=== PATIENT | male | born 1945 | race Caucasian/White ===

== ENCOUNTER 2023-10-01 16:25 | Emergency (ER) | payer MEDICARE, SELFPAY ==
[2023-10-01 16:28] VITALS: BP 148/69; PULSE 93; TEMP 36.4; O2SAT 98; BMI 30.7
--- NOTE | 2023-10-01 16:49 | XR_ITS ---
The [address] [address] Patient Name: FIORELLA VILLAOTRO MRN: [id number] date: 1945 Sex: M Assigned Patient Location: ER Current Patient Location: ED.MAIN Accession/Order Number: [id number] Exam Date: 10/01/2023 17:05 Report Date: 10/01/2023 17:24 At the request of: SUHAIL MCGARRY Procedure: XR chest 2V EXAM: XR chest 2V HISTORY: cough and chest pain for one week. COMPARISON: 04/09/2016 TECHNIQUE: Upright PA and lateral chest x-ray FINDINGS: The heart is not enlarged and the vasculature is not distended. No acute infiltrate, effusion or pneumothorax is identified. The osseous structures are grossly intact. There has been interval placement of a left-sided transvenous pacemaker without a complicating process. XR/XR chest 2V IMPRESSION: No acute infiltrate or evidence of cardiac decompensation. Except for placement of the left-sided pacemaker, the overall appearance of the chest is essentially unchanged. Electronically authenticated by: LEIA RAMOS Date: 10/01/2023 17:24
--- NOTE | 2023-10-01 16:49 | ECG_ITS ---
The [facility] Test Date: 2023-10-01 Pat Name: Holden De La Fuente Department: Room: - Gender: Male [employer]: : 1945 Requested By: TAMARA GOLDMAN Order Number: [id number] Reading MD: LISHA COOLEY Measurements Intervals [place] Rate: 89 P: 66 [place]: 198 QRS: -62 QRSD: 128 T: 69 QT: 388 QTc: 434 Interpretive Statements 1100 Sinus rhythm 2450 Right bundle branch block 2630 Left anterior fascicular block 3114 Cannot rule out anterior myocardial infarction, age undetermined 9150 abnormal ECG Electronically Signed On 10-03-2023 7:36:30 EDT by LISHA COOLEY
--- NOTE | 2023-10-01 16:55 | ED.GENADUL1 ---
HPI HPI - General Adult General Chief complaint: Chest Pain Stated complaint: CHEST PAIN Time Seen by Provider: 10/01/23 16:49 History of Present Illness HPI narrative: Patient is a 78-year-old male who is presenting to the Emergency Room with chief complaint Of left lower anterior, lateral, posterior chest wall pain for the past week. Patient has not been coughing. No traveling. No heavy lifting, twisting, turning, no fall. No traumatic episode of the cause chest wall pain. Patient has no abdominal pain, nausea or vomiting. Patient is sitting these having intermittently pain from his left lower back along his waistline. Patient's having dark or foul-smelling urine, concerned about possible urinary tract infection. Patient has been taking [id number] medication with some relief. and daughter at bedside. Patient does have a pacemaker. Patient is having hard time getting comfortable, sleeping, so came into the Emergency Room for evaluation after his symptoms of been there for one week. All systems are negative except as noted/marked. All systems reviewed and otherwise negative. Nurses note and vital signs reviewed and patient is not hypoxic. General: The patient appears well and in no apparent distress. Patient is resting comfortably on cart. Patient is not toxic, lethargic, or listless Skin: Warm, dry, no pallor noted. There is no rash noted. No petechiae, purpura. Head: Normocephalic, atraumatic Eye: Normal conjunctiva, no drainage, EOMI. PERRL Ears, Nose, Mouth, and Throat: oral mucosa is moist. Nares patent. Mouth without vesicles. Cardiovascular: Regular Rate and Rhythm, no murmur, gallop, rub. Patient has no rash. Patient has moderate to severe tenderness to palpation to the left anterior, lateral, posterior chest wall along rib 10. Patient has no crepitus. No other anterior, lateral, posterior chest wall tenderness palpation. Respiratory: Patient is in no distress, no accessory muscle use, lungs are clear to auscultation, no wheezing, rales or rhonchi Back: non-tender, no CVA tenderness bilaterally to percussion. No CT LS midline pain GI: Obese, no tenderness to palpation, no masses appreciated. No rebound, guarding, or rigidity noted. No distention Musculoskeletal: Patient has full range of motion of all of the extremities, no motor, sensory, or focal neurological deficits Neurological: A&O x4, normal speech Psychiatric: Cooperative Related Data Previous Rx's ?Medication ?Instructions ?Recorded hydrocodone 5 mg-acetaminophen 325 1 tab PO Q4H PRN pain #10 tabs 10/01/23 mg tablet methocarbamol 500 mg tablet 500 mg PO Q8H PRN muscle pain #10 10/01/23 tabs Allergies Allergy/AdvReac Type Severity Reaction Status Date / Time Penicillins Allergy Mild Verified 10/01/23 16:28 Opioid HPI Opioid Management Most Recent Opioid Data: No Data to Display Exam Constitutional Vital Signs, click to edit/add: Last Vital Signs Temp 97.6 F 10/01/23 16:28 Pulse 93 H 10/01/23 16:28 Resp 18 10/01/23 16:28 BP 148/69 H 10/01/23 16:28 Pulse Ox 98 10/01/23 16:28 O2 Del Method Room Air 10/01/23 16:28 Course Vital Signs Vital signs: Vital Signs Temperature 97.6 F 10/01/23 16:28 Pulse Rate 93 H 10/01/23 16:28 Respiratory Rate 18 10/01/23 16:28 Blood Pressure 148/69 H 10/01/23 16:28 Pulse Oximetry 98 10/01/23 16:28 Oxygen Delivery Method Room Air 10/01/23 16:28 Temperature 97.6 F 10/01/23 16:28 Pulse Rate 93 H 10/01/23 16:28 Respiratory Rate 18 10/01/23 16:28 Blood Pressure 148/69 H 10/01/23 16:28 Pulse Oximetry 98 10/01/23 16:28 Oxygen Delivery Method Room Air 10/01/23 16:28 Medical Decision Making [facility] Narrative Medical decision making narrative: Patient urine showed no significant findings. Patient was given 1 L of IV fluid to help with possible dehydration the patient thought he might have. Chest x-ray, troponin, labwork shows no significant findings. Patient will follow-up with his PCP for additional testing needed. Patient was given OPEP therapy and understands importance of using the OPEP therapy. Patient was sent home with prescription for [place] Robaxin to use. Patient educated with ice. Patient has used heat multiple times in the past week which most likely his cause more pain. Lab Data Labs: Lab Results 10/01/23 10/01/23 Range/Units 16:40 18:12 WBC 10.6 (4.0-11.0) 10^3/uL RBC 4.50 L (4.70-6.10) 10^6/uL Hgb 13.8 L (14.0-18.0) g/dL Hct 40.3 L (42.0-54.0) % MCV 89.6 (80.0-94.0) fL MCH 30.7 (25.9-34.0) pg MCHC 34.2 (29.9-35.2) g/dL RDW 13.4 (11.0-15.0) % Plt Count 120 L (150-450) 10^3/uL MPV 10.4 (9.5-13.5) fL Neut % (Auto) 55.1 (43.0-75.0) % Lymph % (Auto) 38.9 (20.5-60.0) % [place] % (Auto) 4.4 (1.7-12.0) % Eos % (Auto) 0.8 L (0.9-7.0) % Baso % (Auto) 0.6 (0.2-2.0) % Neut # (Auto) 5.8 (1.4-6.5) 10^3/uL Lymph # (Auto) 4.1 H (1.2-3.8) 10^3/uL [place] # (Auto) 0.5 (0.3-0.8) 10^3/uL Eos # (Auto) 0.1 (0.0-0.7) 10^3/uL Baso # (Auto) 0.1 (0.0-0.1) 10^3/uL Abs Immat Gran (auto) 0.02 (0.00-0.03) 10^3/uL Imm/Tot Granulo (auto) 0.2 (0.0-0.5) % Sodium 139 (136-145) mmol/L Potassium 4.5 (3.5-5.1) mmol/L Chloride 102 (98-107) mmol/L Carbon Dioxide 27.8 (21.0-32.0) mmol/L Anion Gap 13.7 BUN 16.0 (7.0-18.0) mg/dL Creatinine 1.41 H (0.70-1.30) mg/dL Est GFR ( Amer) 59 L (>=60) Est GFR (Non-Af Amer) 48 L (>=60) BUN/Creatinine Ratio 11.3 Glucose 385 H (74-106) mg/dL Calcium 9.3 (8.5-10.1) mg/dL Total Bilirubin 1.2 H (0.2-1.0) mg/dL AST 31 (15-37) U/L ALT 31 (16-63) U/L Alkaline Phosphatase 86 (46-116) U/L Troponin I High Sens 5.5 (4.0-76.1) pg/mL NT-Pro-B Natriuret Pep 421.0 (<=1800.0) pg/mL Total Protein 7.1 (6.4-8.2) g/dL Albumin 3.7 (3.4-5.0) g/dL Globulin 3.4 g/dL Albumin/Globulin Ratio 1.1 Lipase 48.0 (16.0-77.0) U/L Urine Color Yellow (YELLOW) Urine Clarity Clear (CLEAR) Urine pH 6.0 (5.0-9.0) Ur Specific [place] 1.025 (1.005-1.025) Urine Protein Trace (NEG/TRACE) mg/dL Urine Glucose (UA) >=1000 A (NEGATIVE) mg/dL Urine Ketones Trace A (NEGATIVE) mg/dL Urine Occult Blood Negative (NEGATIVE) Urine Nitrite Negative (NEGATIVE) Urine Bilirubin Negative (NEGATIVE) Urine Urobilinogen 0.2 (0.2-1.0) EU/dL Ur Leukocyte Esterase Negative (NEGATIVE) Urine RBC None seen (0-2) #/HPF Urine WBC None seen (NONE SEEN) #/HPF Ur Squamous Epith Cells Few A (NONE/RARE) #/LPF Urine Crystals None seen (None Seen) #/HPF Urine Bacteria Trace A (NONE SEEN) #/HPF Urine Casts Seen A (NONE SEEN) #/LPF Hyaline Casts Few Urine Mucus Small A (NONE SEEN) ECG Data Attestation: I personally reviewed and interpreted this ECG as follows: (EKG interpretation. Normal sinus rhythm at 89 beats a minute. Left axis deviation. No acute ST elevation, no acute ectopy. QTc 434. Right bundle branch block noted. EKG reading left anterior fascicular block.) Discharge Plan Discharge Stand Alone Forms: Portal Instructions Chief Complaint: Chest Pain Clinical Impression: Chest wall pain, Costochondritis, Dehydration, mild, Chest pain Patient Disposition: Home, Self-Care Time of Disposition Decision: 18:54 Condition: Fair Prescriptions / Home Meds: New methocarbamol 500 mg tablet 500 mg PO Q8H PRN (Reason: muscle pain) Qty: 10 0RF hydrocodone-acetaminophen 5-325 mg tablet 1 tab PO Q4H PRN (Reason: pain) Qty: 10 0RF Print Language: [place] Instructions: Chest Pain (ED), Dehydration (ED), Costochondritis (ED), Chest Wall Pain (ED) Additional Instructions: Use ice 20 minutes on, 20 minutes off. Use incentive spirometer 5-7 times every hour For the next 1-2 weeks Continue to use ice and do not use heat If you are having any significant chest pain, shortness of breath, or symptoms are getting worse return for reevaluation. Referrals: Jalen Young MD [Primary Care Provider] - 1 week Discharge Date/Time: 10/01/23 20:26
[2023-10-01 17:02] LABS: Basophils Absolute Auto 0.1 10^3/uL (0.0-0.1); Basophils Percent Auto 0.6 % (0.2-2.0); Eosinophils Absolute Auto 0.1 10^3/uL (0.0-0.7); Eosinophils Percent Auto 0.8 % (0.9-7.0); Hematocrit 40.3 % (42.0-54.0); Hemoglobin 13.8 g/dL (14.0-18.0); Immature Granulocytes Abs Auto 0.02 10^3/uL (0.00-0.03); Immature Granulocytes Pct Auto 0.2 % (0.0-0.5); Lymphocytes Absolute Auto 4.1 10^3/uL (1.2-3.8); Lymphocytes Percent Auto 38.9 % (20.5-60.0); Mean Corpuscular HGB Conc 34.2 g/dL (29.9-35.2); Mean Corpuscular Hemoglobin 30.7 pg (25.9-34.0); Mean Corpuscular Volume 89.6 fL (80.0-94.0); Mean Platelet Volume 10.4 fL (9.5-13.5); Monocytes Absolute Auto 0.5 10^3/uL (0.3-0.8); Monocytes Percent Auto 4.4 % (1.7-12.0); Neutrophils Absolute Auto 5.8 10^3/uL (1.4-6.5); Neutrophils Percent Auto 55.1 % (43.0-75.0); Platelet Count 120 10^3/uL (150-450); Red Cell Distribution Width 13.4 % (11.0-15.0); White Blood Count 10.6 10^3/uL (4.0-11.0)
[2023-10-01] MEDS: ASPIRIN 81 MG TAB.CHEW 162 MG PO (17:09)
[2023-10-01 17:14] LABS: Alanine Aminotransferase 31 U/L (16-63); Albumin Globulin Ratio 1.1; Albumin Level 3.7 g/dL (3.4-5.0); Alkaline Phosphatase 86 U/L (46-116); Anion Gap 13.7; Aspartate Amino Transferase 31 U/L (15-37); BUN Creatinine Ratio 11.3; Bilirubin Total 1.2 mg/dL (0.2-1.0); Calcium 9.3 mg/dL (8.5-10.1); Carbon Dioxide 27.8 mmol/L (21.0-32.0); Chloride 102 mmol/L (98-107); Estimated GFR (African America 59 (>=60); Estimated GFR (Non-African Ame 48 (>=60); Globulin 3.4 g/dL; Glucose 385 mg/dL (74-106); Potassium 4.5 mmol/L (3.5-5.1); Sodium 139 mmol/L (136-145); Total Protein 7.1 g/dL (6.4-8.2)
[2023-10-01 17:22] LABS: Troponin I High Sensitivity 5.5 pg/mL (4.0-76.1)
[2023-10-01] MEDS: 0.9 % SODIUM CHLORIDE 1,000 ML 1000 ML IV (18:17)
[2023-10-01 18:38] LABS: Bilirubin Urine NEGATIVE (NEGATIVE); Blood Urine NEGATIVE (NEGATIVE); Clarity Urine CLEAR (CLEAR); Color Urine YELLOW (YELLOW); Glucose Urine UA >=1000 mg/dL (NEGATIVE); Ketones Urine TRACE mg/dL (NEGATIVE); Leukocyte Esterase Urine NEGATIVE (NEGATIVE); Nitrite Urine NEGATIVE (NEGATIVE); Protein Urine TRACE mg/dL (NEG/TRACE); Specific Gravity Urine 1.025 (1.005-1.025); Urobilinogen Urine 0.2 EU/dL (0.2-1.0)
[2023-10-01 18:46] LABS: Bacteria Urine TRACE #/HPF (NONE SEEN); Mucus Urine SMALL (NONE SEEN); RBC Urine NONE SEEN #/HPF (0-2); Squamous Epithelial Cell Urine FEW #/LPF (NONE/RARE); WBC Urine NONE SEEN #/HPF (NONE SEEN)
[2023-10-01 18:47] LABS: Cast Seen? SEEN #/LPF (NONE SEEN); Crystals Seen? None Seen #/HPF (None Seen); Hyaline Casts Urine FEW
== END 2023-10-01 20:26 | disposition home or self-care (01) ==
PROVIDERS: Emergency Provider Emergency Medicine; PCP Family Medicine
DX: R07.9 Chest pain, unspecified (principal); R07.89 Other chest pain; M94.0 Chondrocostal junction syndrome [Tietze]; E86.0 Dehydration; E66.9 Obesity, unspecified; Z68.30 Body mass index [BMI] 30.0-30.9, adult; I45.10 Unspecified right bundle-branch block; Z95.0 Presence of cardiac pacemaker
CPT/HCPCS: 36415; 71046; 80053; 81001; 83690; 83880; 84484; 85025; 93005; 94667; 99285